=== PATIENT | female | born 2000 | race Caucasian/White ===

== ENCOUNTER 2018-11-29 09:45 | Emergency (ER) | payer OTHER, SELFPAY ==
[2018-11-29 10:00] VITALS: BP 116/69; PULSE 152; RESP 22; TEMP 37.6; O2SAT 100; BMI 24.6
--- NOTE | 2018-11-29 10:03 | DI.RAD.S_ITS ---
PROCEDURE: XR CHEST 1V INDICATIONS: heart palpitations TECHNIQUE: One view of the chest was acquired. COMPARISON: [facility], CR, XR CHEST 1VW (PORTABLE), 11/28/2015, 17:02. [facility], CT, CT ANGIO CHEST PE, 11/28/2015, 20:14. FINDINGS: Surgical changes and devices: None. Lungs and pleura: Lungs are clear. No pleural effusions or pneumothorax. Mediastinum: Mediastinal contours appear normal. Heart size is normal. Bones and chest wall: No suspicious bony lesions. Overlying soft tissues appear unremarkable. IMPRESSION: No acute cardiopulmonary abnormality. Dictated by: Lorenzo Martinez M.D. on 11/29/2018 at 10:19 Approved by: Lorenzo Martinez M.D. on 11/29/2018 at 10:21
[2018-11-29] MEDS: SODIUM CHLORIDE 0.9% 1,000 ML 1000 ML IV (10:09)
[2018-11-29 10:15] LABS: Add Manual Diff / Slide Review NO; Basophils Absolute Auto 0 /uL (0-100); Basophils Percent Auto 0.4 % (0-2); Eosinophils Absolute Auto 0 /uL (0-450); Eosinophils Percent Auto 0.1 % (2-4); Hematocrit 39.3 % (36-46); Hemoglobin 13.3 g/dL (12.0-16.0); Lymphocytes Absolute Auto 1300 /uL (1100-4500); Lymphocytes Percent Auto 11.5 % (25-40); Mean Corpuscular HGB Conc 33.9 % (30-36); Mean Corpuscular Hemoglobin 31.3 PG (26-34); Mean Corpuscular Volume 92.3 fL (80-100); Monocytes Absolute Auto 200 /uL (0-900); Monocytes Percent Auto 1.9 % (3-14); Neutrophils Absolute Auto 9700 /uL (1500-7000); Neutrophils Percent Auto 86.1 % (50-75); Platelet Count 340 X10^3/uL (150-400); Red Blood Cell Count 4.26 X10^6/uL (4.0-5.2); Red Cell Distribution Width 12.4 % (11.6-14.8); White Blood Cell Count 11.3 X10^3/uL (4.5-11.0)
[2018-11-29 10:27] LABS: BUN Creatinine Ratio 22.9 (6-22); Blood Urea Nitrogen 16 mg/dL (7-17); Carbon Dioxide 21 mmol/L (22-32); Chloride 104 mmol/L (98-107); D Dimer < 200 ng/mL (<230); Estimated Glomerular Filt Rate > 60.0 mL/min (>60); Glucose 97 mg/dL (70-100); HEMOLYSIS < 15 (0-50); Potassium 4.1 mmol/L (3.4-5.1); Sodium 138 mmol/L (137-145)
[2018-11-29 10:30] VITALS: BP 109/69; PULSE 127; RESP 20; O2SAT 99
--- NOTE | 2018-11-29 10:46 | ED_ITS ---
HPI - Arrhythmia/Palpitations General Chief Complaint: Arrhythmia/Palpitations Stated Complaint: Sent over by dentist, high heart rate Time Seen by Provider: 11/29/18 09:56 Source: patient Mode of arrival: ambulatory Limitations: no limitations History of Present Illness HPI narrative: Patient is a 18-year-old female sent over from the dentist with elevated heart rate. She was scheduled to have her wisdom teeth removed today however with Versed and fentanyl on board her heart rate was still in the 150s and she was sedated the procedure was not done. Patient states that she has anxiety and heart rate often gets elevated however it is still elevated in the emergency department. It does seem to be sinus. She does have a history of pulmonary embolism for control about 2 years ago. She denies any chest pain or shortness of breath. She is no longer on control. He does feel it beating fast at times. complaint: heart racing Duration: constant Context: occurred during rest Related Data Home Medications Medication Instructions Recorded Confirmed chlorhexidine gluconate 1 dose MUCOUS MEMBRANE DIRECTED 11/29/18 11/29/18 penicillin V potassium 500 mg PO TID 11/29/18 11/29/18 triazolam 0.25 mg PO .ONCE 11/29/18 11/29/18 Allergies Allergy/AdvReac Type Severity Reaction Status Date / Time No Known Drug Allergies Allergy Verified 11/29/18 10:09 Review of Systems Review of Systems GENERAL: Denies chills, fatigue, malaise, fever, sweats, travel HEENT: Denies sinus pain, ear pain, sore throat, difficulty swallowing, neck pain RESPIRATORY: Denies dyspnea, cough, wheezing, hemoptysis, sputum. CARDIOVASCULAR: See HPI GASTROINTESTINAL: Denies nausea, vomiting, abdominal pain, diarrhea, constipation, melena. : Denies dysuria, frequency, incontinence, hematuria, urinary retention, flank pain. MUSCULOSKELETAL: Denies weakness, joint pain, or bony pain SKIN: No rash, no erythema, no pruritus NEUROLOGIC: Denies weakness, dizziness, headache, numbness, change in speech, confusion PSYCHIATRIC: No concerning psychosocial issues. 12 point review of systems is negative except for those stated above and HPI [facility] Medical History Pulmonary embolism (Acute) Social History Smoking Status: Never smoker Social History Smoking Status: Never smoker Exam Initial Vital Signs Initial Vital Signs: Vital Signs Temperature 99.7 F H 11/29/18 10:00 Pulse Rate 152 H 11/29/18 10:00 Respiratory Rate 22 11/29/18 10:00 Blood Pressure 116/69 11/29/18 10:00 Pulse Oximetry 100 11/29/18 10:00 GENERAL: Well-appearing, well-nourished and in no acute distress. HEENT: Head atraumatic,EOMI, pupils reactive, face symmetric, moist mucous membranes CARDIOVASCULAR: Tachycardic regular no murmurs RESPIRATORY: Breath sounds equal bilaterally, no wheezes rales or rhonchi. ABDOMEN: Soft, nontender. Normoactive bowel sounds all 4 quadrants. No guarding or rebound. EXTREMITIES: Normal range of motion, no clubbing or edema. Neurovascularly intact NEUROLOGICAL: Alert and oriented x4.Normal gait and speech. Cranial nerves II through XII grossly intact. SKIN: Warm, dry, no laceration, no petechiae, no rashes or lesions. Course Orders Ordered: ED Orders 11/29/18 11:51 CT angio chest PE protocol Stat Discontinued Medications Sodium Chloride (Normal Saline 0.9%) 1,000 mls @ 1,000 mls/hr IV CONT MAGDY Last Infusion: 11/29/18 11:35 Dose: 0 mls/hr Admin: 11/29/18 10:09 Dose: 1,000 mls/hr Vital Signs - 8 hr 11/29/18 12:14 11/29/18 12:33 Pulse Rate 130 H 122 H Respiratory Rate 10 L 24 Blood Pressure [Left Arm] 102/62 109/71 Pulse Oximetry 98 100 MDM - Arrhythmia/Palpitations Lab Data Attestation: I reviewed the patient's lab results. Result diagrams: 11/29/18 10:02 11/29/18 10:02 Lab Results 11/29/18 11/29/18 11/29/18 Range/Units 10:02 10:02 10:02 WBC 11.3 H (4.5-11.0) X10^3/uL RBC 4.26 (4.0-5.2) X10^6/uL Hgb 13.3 (12.0-16.0) g/dL Hct 39.3 (36-46) % MCV 92.3 (80-100) fL MCH 31.3 (26-34) PG MCHC 33.9 (30-36) % RDW 12.4 (11.6-14.8) % Plt Count 340 (150-400) X10^3/uL Neut % (Auto) 86.1 H (50-75) % Lymph % (Auto) 11.5 L (25-40) % Meigs % (Auto) 1.9 L (3-14) % Eos % (Auto) 0.1 L (2-4) % Baso % (Auto) 0.4 (0-2) % Neut # (Auto) 9700 H (5331-9142) /uL Lymph # (Auto) 1300 (1082-4038) /uL Meigs # (Auto) 200 (0-900) /uL Eos # (Auto) 0 (0-450) /uL Baso # (Auto) 0 (0-100) /uL D-Dimer < 200 (<230) ng/mL Sodium 138 (137-145) mmol/L Potassium 4.1 (3.4-5.1) mmol/L Chloride 104 (98-107) mmol/L Carbon Dioxide 21 L (22-32) mmol/L BUN 16 (7-17) mg/dL Creatinine 0.70 (0.52-1.04) mg/dL Estimated GFR > 60.0 (>60) mL/min BUN/Creatinine Ratio 22.9 H (6-22) Glucose 97 (70-100) mg/dL Calcium 9.0 (8.4-10.2) mg/dL TSH (0.47-4.68) uIU/mL 11/29/ Range/Units 10:02 WBC (4.5-11.0) X10^3/uL RBC (4.0-5.2) X10^6/uL Hgb (12.0-16.0) g/dL Hct (36-46) % MCV (80-100) fL MCH (26-34) PG MCHC (30-36) % RDW (11.6-14.8) % Plt Count (150-400) X10^3/uL Neut % (Auto) (50-75) % Lymph % (Auto) (25-40) % Meigs % (Auto) (3-14) % Eos % (Auto) (2-4) % Baso % (Auto) (0-2) % Neut # (Auto) (7386-2662) /uL Lymph # (Auto) (9411-2709) /uL Meigs # (Auto) (0-900) /uL Eos # (Auto) (0-450) /uL Baso # (Auto) (0-100) /uL D-Dimer (<230) ng/mL Sodium (137-145) mmol/L Potassium (3.4-5.1) mmol/L Chloride (98-107) mmol/L Carbon Dioxide (22-32) mmol/L BUN (7-17) mg/dL Creatinine (0.52-1.04) mg/dL Estimated GFR (>60) mL/min BUN/Creatinine Ratio (6-22) Glucose (70-100) mg/dL Calcium (8.4-10.2) mg/dL TSH 3.61 (0.47-4.68) uIU/mL Point of Care Testing Test Results Negative Imaging Data Chest x-ray: Radiologist's impression: PROCEDURE: XR CHEST 1V INDICATIONS: heart palpitations TECHNIQUE: One view of the chest was acquired. COMPARISON: [facility], CR, XR CHEST 1VW (PORTABLE), 11/28/2015, 17:02. [facility], CT, CT ANGIO CHEST PE, 11/28/2015, 20:14. FINDINGS: Surgical changes and devices: None. Lungs and pleura: Lungs are clear. No pleural effusions or pneumothorax. Mediastinum: Mediastinal contours appear normal. Heart size is normal. Bones and chest wall: No suspicious bony lesions. Overlying soft tissues appear unremarkable. IMPRESSION: No acute cardiopulmonary abnormality. Dictated by: Lorenzo Martinez M.D. on 11/29/2018 at 10:19 CT scan - chest: Radiologist's impression: PROCEDURE: CT ANGIO CHEST PE PROTOCOL INDICATIONS: hx of PE. High heart rate TECHNIQUE: After the administration of intravenous contrast, 2 mm thick sections acquired from the pulmonary apices to the posterior costophrenic angles. 3-dimensional maximum intensity projection (MIP) coronal and sagittal reformats were then acquired through the thorax. For radiation dose reduction, the following was used: automated exposure control, adjustment of mA and/or kV according to patient size. COMPARISON: [facility], CT, CT ANGIO CHEST PE, 11/28/2015, 20:14. FINDINGS: Image quality: Excellent. Pulmonary arteries: Pulmonary arteries are normal in size, and demonstrate no intraluminal filling defects to suggest central pulmonary embolism. Lungs and pleura: Lungs are clear. No pleural effusions or pneumothorax. Central and peripheral airways are patent. Mediastinum: Heart size is normal, without pericardial effusion. No mediastinal or hilar adenopathy. Thoracic aorta is normal in caliber and enhancement. Esophagus is normal in caliber, without hiatal hernia. Bones and chest wall: No suspicious bony lesions. Ribs and thoracic spine appear intact throughout. Thyroid gland appears normal where well visualized. No axillary or supraclavicular adenopathy. Abdomen: Visualized upper abdominal solid organs appear normal in the early arterial phase of enhancement. IMPRESSION: No pulmonary embolus seen. No pneumonia or pleural effusion found. Source of reported high heart rate is not seen. Dictated by: Shawn Brown M.D. on 11/29/2018 at 12:03 ECG Data Attestation: I personally reviewed and interpreted this ECG as follows: Prior ECG tracings: not available for review Interpretation: Sinus tachycardia rate 150 p.r. interval [address] changes definite sinus rhythm no T-wave inversions MDM Narrative Medical decision making narrative: While resting in the ED patient's heart rate does come down into the 120s. She has no sign of infection she does not appear septic no PE identified. It does very and how fast it is. Her TSH is also normal. At this time I do believe this to be related to anxiety. I do recommend that she follow up with Cardiology if she continued to have persistent elevated heart rate. She does monitor it at home on her smart phone device. She says last night it was 80. I recommend she do the same and return to the ED if needed. I discussed all findings with the patient mother and father, Education has been performed regarding treatment plan, diagnosis, warning signs and symptoms and all concerns have been addressed. Verbally agree with and understood all of the above. Discharge Plan Departure Patient Disposition: Home Clinical Impression: Sinus tachycardia Discharge Date/Time: 11/29/18 12:48 Interventions: ED Discharge Assessment Last Done: 11/29/18 12:47 Instructions: Arrhythmias, DI for Palpitations Activity Restrictions/Additional Instructions: *You have been diagnosed with rapid heart rate *What to do: At this time all you do a fast heart rate but it is in a regular rhythm. No pulmonary embolism found blood work reassuring thyroid normal. I do recommend do see a hvac refrigeration technician in regards to her persistent ongoing fast heart rate Avoid caffeine and alcohol *Continue to take medications as directed *Follow up with your primary care provider in 2-3 days *Return to ER if you should have passing-out heart palpitations dizziness lightheadedness chest pain or any new, worsening or concerning symptoms Prescriptions: No Action triazolam 0.25 mg tablet 0.25 mg PO .ONCE RF: 0 penicillin V potassium 500 mg tablet 500 mg PO TID RF: 0 chlorhexidine gluconate 0.12 % mouthwash 1 dose mucous membrane DIRECTED RF: 0 Referrals: Krish Matthews MD [Primary Care Provider] -
[2018-11-29 10:57] LABS: Thyroid Stimulating Hormone 3.61 uIU/mL (0.47-4.68)
[2018-11-29 11:00] VITALS: BP 108/63; PULSE 135; RESP 20; O2SAT 100
--- NOTE | 2018-11-29 11:51 | DI.CT.S_ITS ---
PROCEDURE: CT ANGIO CHEST PE PROTOCOL INDICATIONS: hx of PE. High heart rate TECHNIQUE: After the administration of intravenous contrast, 2 mm thick sections acquired from the pulmonary apices to the posterior costophrenic angles. 3-dimensional maximum intensity projection (MIP) coronal and sagittal reformats were then acquired through the thorax. For radiation dose reduction, the following was used: automated exposure control, adjustment of mA and/or kV according to patient size. COMPARISON: [facility], CT, CT ANGIO CHEST PE, 11/28/2015, 20:14. FINDINGS: Image quality: Excellent. Pulmonary arteries: Pulmonary arteries are normal in size, and demonstrate no intraluminal filling defects to suggest central pulmonary embolism. Lungs and pleura: Lungs are clear. No pleural effusions or pneumothorax. Central and peripheral airways are patent. Mediastinum: Heart size is normal, without pericardial effusion. No mediastinal or hilar adenopathy. Thoracic aorta is normal in caliber and enhancement. Esophagus is normal in caliber, without hiatal hernia. Bones and chest wall: No suspicious bony lesions. Ribs and thoracic spine appear intact throughout. Thyroid gland appears normal where well visualized. No axillary or supraclavicular adenopathy. Abdomen: Visualized upper abdominal solid organs appear normal in the early arterial phase of enhancement. IMPRESSION: No pulmonary embolus seen. No pneumonia or pleural effusion found. Source of reported high heart rate is not seen. Dictated by: Shawn Brown M.D. on 11/29/2018 at 12:03 Approved by: Shawn Brown M.D. on 11/29/2018 at 12:07
[2018-11-29 12:14] VITALS: BP 102/62; PULSE 130; RESP 10; O2SAT 98
[2018-11-29 12:33] VITALS: BP 109/71; PULSE 122; RESP 24; O2SAT 100
== END 2018-11-29 12:48 | disposition home or self-care (01) ==
PROVIDERS: Emergency Provider Emergency Medicine; PCP Family Medicine
DX: R00.0 Tachycardia, unspecified (principal); Z86.711 Personal history of pulmonary embolism
CPT/HCPCS: 36591; 71045; 71275; 80048; 81025; 84443; 85025; 85379; 93005; 93041; 96360; 99284; 99285; Q9967